=== PATIENT | female | born 1950 | race Caucasian/White ===

== ENCOUNTER 2016-07-17 07:17 | Day surgery (SDC) | payer OTHER ==
[~2016-07-17] VITALS: Ht 154.9 cm; Wt 70.5 kg
[~2016-07-17 07:17] MED LIST: CIPR500T4 PO; MTF1000T PO
[2016-07-17 08:13] VITALS: Ht 154.9 cm; Wt 70.5 kg
[2016-07-17] MEDS ORDERED: ATEN-51 PO (08:19)
[2016-07-17] MEDS ORDERED: ASPI-664 PO (08:19)
[2016-07-17] MEDS ORDERED: BENA5TAB2 PO (08:19)
[2016-07-17 08:37] VITALS: BP 181/88; PULSE 54; RESP 16
[2016-07-17] MEDS ORDERED: FENTAnyl 50 MCG/ML VIAL ONE (09:08)
[2016-07-17] MEDS ORDERED: MIDAZOLAM 1 MG/ML 2 ML INJ ONE ×2 (09:09)
[2016-07-17 09:32] VITALS: BP 141/75; PULSE 54; RESP 16
--- NOTE | 2016-07-17 11:03 | GILP ---
DATE OF PROCEDURE: 07/17/2016 NAME OF PROCEDURE: Colonoscopy. SURGEON: Samantha Bustos MD PREOPERATIVE DIAGNOSIS: Screening colonoscopy. POSTOPERATIVE DIAGNOSES: 1. Colonoscopy all the way to the cecum. 2. Diverticulosis of the colon. 3. Internal hemorrhoids. 4. No colon neoplasm was identified. INDICATION FOR THE PROCEDURE: Ms. Kym Ford is a 65-year-old female patient who was scheduled f or screening colonoscopy. The procedure and possible complications are well explained to the patient, she understood and conse nted to the procedure. DESCRIPTION OF PROCEDURE: Under the influence of fentanyl and Versed, the colonoscope was carefully introduced in the 7 rectum and under direct vision, it was advanced all the way to the cecum. FINDINGS: The patient had diverticulosis of the colon. She also had internal hemorrhoids. No colo n neoplasm was identified. She tolerated the procedure and there were no complication from the procedure. At the end of the procedure, she was awake with stable vital signs and she was discharged [facility] family. IMPRESSION: 1. Colonoscopy all the way to the cecum. 2. Diverticulosis of the colon. 3. Internal hemorrhoids. 4. No colon neoplasm was identified. PLAN: Next screening colonoscopy in the years. INDICATION: FOR THE PROCEDURE: Ms. Kym Salgado is a 65-year-old, female patient who was schedule d for screen. The procedure and possible complications are well explained to the patient and she un derstood and are consented to the procedure. Under the influence of fentanyl and Versed the colonoscopy was carefully was introduced in to the re ctum, under direct vision it was advanced all the way to the cecum. FINDINGS: The patient has diverticulosis of the colon. She also and internal hemorrhoids. No colon neoplasm was identified. She tolerated the procedure were well and there were no complications from the procedure. At the en d of the procedure she was awaken with stable vital signs and she was discharged home to the care of her family. IMPRESSION: 1. Colonoscopy all the way to the cecum. 2. Diverticulosis of the colon. 3. Diverticulosis of the colon. 4. Internal hemorrhoids. 5 Local neoplasm was identified. PLAN: New screening colonoscopy in ten years. Dictated By: SAMANTHA GOLDBERG/SEBASTIEN Conf#: [id number] DID#: [id number] CC: SAMANTHA BUSTOS MD;*[facility]*
== END 2016-07-17 11:19 | disposition home or self-care (01) ==
LOC: GIL 07:17
PROVIDERS: ATTEND Internal Medicine Gastroenterology
DX: Z12.11 Encounter for screening for malignant neoplasm of colon (principal); K57.30 Diverticulosis of large intestine without perforation or abscess without bleeding; K64.8 Other hemorrhoids; I10 Essential (primary) hypertension; E11.9 Type 2 diabetes mellitus without complications
CPT/HCPCS: 45378; J2250; J3010

== ENCOUNTER 2016-10-30 10:26 | Emergency (ER) | payer BC, OTHER ==
[~2016-10-30] VITALS: Ht 157.5 cm; Wt 67.0 kg
[~2016-10-30 10:26] MED LIST changes: +ASPI-664 PO; +ATEN-51 PO; +BENA5TAB2 PO; -CIPR500T4 PO; -MTF1000T PO
[2016-10-30 10:32] VITALS: Ht 157.5 cm; Wt 67.0 kg
[2016-10-30] MEDS ORDERED: IBUPROFEN 600 MG TAB PO ONE (11:00)
[2016-10-30 11:10] LABS: ADD UMIC YES; URINE BILIRUBIN (Dip) NEGATIVE (NEGATIVE); URINE BLOOD (Dip) 3+ (NEGATIVE); URINE COLOR RED (YELLOW); URINE GLUCOSE (Dip) >=1000 % (NEGATIVE); URINE KETONES (Dip) NEGATIVE (NEGATIVE); URINE LEUKOCYTE ESTERASE (Dip) 1+ (NEGATIVE); URINE NITRITE (Dip) NEGATIVE (NEGATIVE); URINE TOTAL PROTEIN (Dip) 2+ (NEGATIVE); URINE UROBILINOGEN (Dip) 0.2 E.U./dL (0.1-1.0)
[2016-10-30 11:27] LABS: URINE RBCS >200 /HPF (0)
--- NOTE | 2016-10-30 12:12 | RADRPT ---
PROCEDURE: CT Abdomen and Pelvis without contrast. CLINICAL INDICATION: Right lower quadrant pain. Hematuria. TECHNIQUE: CT scan of the abdomen and pelvis without contrast was performed on a multidetector hig h-resolution CT scanner. The patient was scanned without intravenous contrast. Coronal and sagittal reformatted images were obtained from the axial source images. Images were reviewed on a high-resol [employer] PACS workstation. The total exam CTDI equals 18.91 mGy and the total exam DLP equals 1067.22 m Gy-cm. One or more of the following dose reduction techniques were used: Automated exposure control. Adjustment of the mA and/or kV according to patient size. Use of iterative reconstruction technique. COMPARISON: CT abdomen and pelvis 01/20/2016 FINDINGS: CT abdomen: The lung bases are clear. The heart size is normal, without pericardial thickening or effusion. Th e liver is normal in size and density without focal mass or intrahepatic biliary dilatation. The sp hugo is normal in size and homogeneous in density. The stomach is partially collapsed, but is gross ly unremarkable. The pancreas as visualized is normal. The gallbladder is remarkable for a large g allstone measures up to 3.7 cm. There is no evidence for biliary dilatation. There is approximately 1.5 cm right adrenal adenoma, unchanged. There is persistent moderate bilateral hydroureteronephrosis with interval decrease in size of the l eft kidney. There is no urolithiasis. There is trabeculated wall of the markedly distended urinary bladder likely related to neurogenic bladder. The aorta is of normal caliber. Aortic vascular calcifications are present. There is no retroperit michael lymphadenopathy. The ash[place] hepatis region is clear. There is diverticulosis of the descendin g and sigmoid colon without evidence of acute diverticulitis. CT pelvis: The small bowel loops situated within the pelvis are unremarkable. There is a normal appendix. The pelvic organs are normal. The pelvic sidewalls and inguinal regions are clear. The sigmoid colon and rectum are remarkable for sigmoid diverticulosis. No mass, lymphadenopathy, or free fluid is se en. No acute inflammation is seen. The surrounding osseous structures are remarkable for degenerat oscar spondylosis of the spine. No osteolytic or osteoblastic lesion is detected. IMPRESSION: 1. Persistent moderate bilateral hydroureteronephrosis with significant decrease in size of the lef t kidney. No urolithiasis. Trabeculated wall of the moderately distended urinary bladder with smal l diverticula suggestive of neurogenic bladder or longstanding bladder outflow obstruction. 2. Normal appendix. 3. Unchanged right adrenal adenoma. 4. Cholelithiasis without evidence of acute cholecystitis. 5. Diverticulosis of the left colon without evidence of acute diverticulitis. 6. Scattered aortoiliac atherosclerosis. RPTAT: BB .Berta Thomas MD, MD Date Time Electronically viewed and signed by .Berta Thomas MD, on 10/30/2016 12:11 .O/
[2016-10-30] MEDS ORDERED: INSULIN LISPRO 100 UNIT/ML VIAL SC STA (12:18)
[2016-10-30] MEDS ORDERED: LIDOCAINE 1% (MDV) 20 ML INJ SC ONE (12:30)
[2016-10-30] MEDS ORDERED: CEFTRIAXONE 1 GM INJ IM ONE (12:30)
[2016-10-30] MEDS ORDERED: CEPH-443 PO (12:40)
--- NOTE | 2016-10-30 12:42 | ERD ---
ER Documentation Chief Complaint Date/Time DATE: 10/30/16 TIME: 12:40 Chief Complaint dysuria x 4 days HPI This 66-year-old female complains of intermittent dysuria and hematuria for last 4 days. She also some suprapubic and mild right lower abdomen pain. She denies fevers, vomiting, flank pain. ROS All systems reviewed and are negative except as per history of present illness. Medications Home Meds Active Scripts Cephalexin* (Keflex*) 500 Mg Capsule, 500 MG PO Q6 for 7 Days, #28 CAP Prov:MALOU BRODY MD 10/30/16 Reported Medications Aspirin* (Aspirin* EC) 81 Mg Tablet.dr, 81 MG PO DAILY, TAB 07/17/16 Atenolol* (Atenolol*) 25 Mg Tablet, 25 MG PO DAILY, #30 TAB 07/17/16 Benazepril Hcl* (Benazepril Hcl*) 5 Mg Tablet, 5 MG PO DAILY, #30 TAB 07/17/16 Allergies Allergies: Coded Allergies: nifedipine (Verified Allergy, Intermediate, hallucinations, 10/30/16) PMhx/Soc History of Surgery: Yes (AVE) Anesthesia Reaction: No Hx Neurological Disorder: No Hx Respiratory Disorders: No Hx Cardiac Disorders: Yes (HTN) Hx Psychiatric Problems: No Hx Miscellaneous Medical Probl: No Hx Alcohol Use: No Hx Substance Use: No Hx Tobacco Use: No Physical Exam Vitals Vital Signs Date Time Temp Pulse Resp B/P Pulse Ox O2 Delivery O2 Flow Rate FiO2 10/30/16 10:32 98.1 81 18 197/90 0 Physical Exam Const: [] Alert, not ill-appearing, morbidly obese. Head: Atraumatic Eyes: Normal Conjunctiva ENT: Normal External Ears, Nose and Mouth. Neck: Full range of motion..~ No meningismus. Resp: Clear to auscultation bilaterally Cardio: Regular rate and rhythm, no murmurs Abd: Soft, minimal suprapubic and right pelvic tenderness. No tenderness at McBurney's point no Rojas sign. And r, non distended. Normal bowel sounds Skin: No petechiae or rashes Back: No midline or flank tenderness Ext: No cyanosis, or edema Neur: Awake and alert Psych: Normal Mood and Affect Results 24 hrs Laboratory Tests Test 10/30/16 10:56 10/30/16 12:08 Urine Color RED Urine Clarity CLEAR Urine pH 5.5 Urine Specific [place] 1.010 Urine Ketones NEGATIVE Urine Nitrite NEGATIVE Urine Bilirubin NEGATIVE Urine Urobilinogen 0.2 E.U./dL Urine Leukocyte Esterase 1+ Urine Microscopic RBC >200/HPF Urine Microscopic WBC 25-50/HPF Urine Epithelial Cells OCCASIONAL Urine Hemoglobin 3+ Urine Glucose >=1000% Urine Total Protein 2+ Bedside Glucose 385mg/dL Current Medications Medications (Trade) Dose Ordered Sig/Mick Route PRN Reason Start Time Stop Time Status Last Admin Dose Admin Ibuprofen (Motrin) 600 mg ONCE ONCE PO 10/30/16 11:00 10/30/16 11:01 DC 10/30/16 11:09 Ceftriaxone Sodium (Rocephin) 1 gm ONCE ONCE IM 10/30/16 12:30 10/30/16 12:31 DC 10/30/16 12:37 Lidocaine (Xylocaine 1% (Mdv) 20 ml) 20 ml ONCE ONCE SC 10/30/16 12:30 10/30/16 12:31 DC 10/30/16 12:37 Insulin Human Lispro (Humalog) 10 unit ONCE STAT SC 10/30/16 12:18 10/30/16 12:19 DC 10/30/16 12:37 Procedures/MDM And shows positive glucose leukocytes and hemoglobin. Accu-Chek was 380. Patient was given Humalog 10 units subcutaneously. Patient was given Rocephin 1 g IM as well. The uncertain cause of right lower quadrant pain CT abdomen pelvis was performed which showed signs of neurogenic bladder and mild bilateral hydronephrosis without specific signs of obstruction. No evidence of appendicitis. There is a stable adrenal adenoma. Patient signs and symptoms of UTI with probable pain of uncertain etiology without signs or symptoms to suggest tubo-ovarian abscess, appendicitis, sepsis or pyelonephritis. Patient will be treated with Keflex and ibuprofen at home and instructions for clear fluids. Patient is advised to follow-up with primary doctor this week return to the ER for new or worsening symptoms. Departure Diagnosis: Primary Impression: UTI (urinary tract infection) Urinary tract infection type: acute cystitis Hematuria presence: with hematuria Qualified Code: N30.01 - Acute cystitis with hematuria Condition: Stable Patient Instructions: Hyperglycemia (High Blood Sugar), Understanding Urinary Tract Infections (UTIs) Additional Instructions: ORINA DIEGO INFECCION. CT SCAN NO TIENE EMERGENCIA. JENA MUCHO AGUA. Cheque otro vez con ling doctor primario en el proximo simon or regresa para mas o nueva simptomas. MALOU BRODY MD Oct 30, 2016 12:42
[2016-10-30] MEDS ORDERED: IBUP-1542 PO (12:43)
== END 2016-10-30 12:52 | disposition home or self-care (01) ==
LOC: FTE 10:26
DX: N30.01 Acute cystitis with hematuria (principal); I10 Essential (primary) hypertension; Z79.82 Long term (current) use of aspirin
CPT/HCPCS: 74176; 81001; 82962; 96372; J0696; J1815; Z7502; Z7610